=== PATIENT | male | born 2005 | race African-American/Black ===

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

== ENCOUNTER 2024-02-27 21:34 | Emergency (ER) | payer OTHER ==
[2024-02-27] MEDS ORDERED: Ondansetron ODT 4 MG TAB ONE (22:07)
== END 2024-02-27 22:50 | disposition home or self-care (01) ==
LOC: CSHERS 21:34
DX: F10.10 Alcohol abuse, uncomplicated (principal); R11.2 Nausea with vomiting, unspecified
CPT/HCPCS: 99283; Q0162

== ENCOUNTER 2025-08-08 06:19 | Emergency (ER) | payer OTHER, SELFPAY ==
[2025-08-08] MEDS ORDERED: Famotidine 20 MG TAB ONE (06:52)
[2025-08-08 07:15] LABS: Glucose, Urine (Dipstick) Normal (Negative); Leukocyte Negative (Negative); Protein, Urine (Dipstick) Negative (Neg-Trace); Specific Gravity, Urine 1.020 (1.005-1.030)
[2025-08-08 08:24] LABS: Bacteria/HPF None Seen HPF (None Seen); CAUTI Indications for Culture Pelvic or flank pain; RBC/HPF None Seen HPF (0-3); WBC/HPF 0-3 HPF (0-3)
[2025-08-08 08:26] LABS: Urine Culture Reflex No No
== END 2025-08-08 07:30 | disposition home or self-care (01) ==
LOC: CSHERS 06:19
DX: K29.00 Acute gastritis without bleeding (principal)
CPT/HCPCS: 74176; 81001